=== PATIENT | male | born 2000 | race African-American/Black ===

== ENCOUNTER 2022-05-13 18:56 | Emergency (ER) | payer OTHER ==
[2022-05-13 19:35] VITALS: BP 126/88
[2022-05-13] MEDS ORDERED: methocarbamoL 500 MG TABLET PO STA (21:58)
[2022-05-13] MEDS ORDERED: KETOROLAC 30 MG/ML VIAL IM STA (21:59)
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
== END 2022-05-13 22:13 | disposition home or self-care (01) ==
LOC: ED 18:56
DX: S13.4XXA Sprain of ligaments of cervical spine, initial encounter (principal); V47.5XXA Car driver injured in collision with fixed or stationary object in traffic accident, initial encounter; Y93.89 Activity, other specified; F17.200 Nicotine dependence, unspecified, uncomplicated
CPT/HCPCS: 96372; 99282; 99283; A9270

== ENCOUNTER 2023-09-11 18:44 | Emergency (ER) | payer OTHER ==
--- NOTE | 2023-09-11 19:24 | ED Physician Documentation ---
PD HPI HEADACHE - Stated complaint Stated Complaint: DEMPSEY - Chief complaint Chief Complaint: Neuro - Additional information Additional information: 22-year-old male with no pertinent past medical history presents emergency department for 1 week of worsening headache. Patient says that he originally attributed this to working in a very loud environment he said pain to get worse at nighttime he is able to semicontrol the pain with Tylenol but nothing ever fully alleviated the headache. He has been noticing hot flashes at nighttime when he sleeping to the point where he is sweating through his sheets consistently for the last 4-5 nights. 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 a couple weeks ago he was in [facility], [facility], [place] and [facility] PD PAST MEDICAL HISTORY - Past Medical History Past Medical History: Yes Psych: Depression, Anxiety - Past Surgical History Past Surgical History: No - Present Medications Home Medications: Ambulatory Orders Medication Instructions Recorded Confirmed Fluoxetine HCl [Prozac] 40 mg PO QPM 09/11/23 09/11/23 - Allergies Allergies/Adverse Reactions: Allergies Allergy/AdvReac Type Severity Reaction Status Date / Time No Known Drug Allergies Allergy Verified 09/11/23 19:17 - Social History Does the pt smoke?: Yes Smoking Status: Current every day smoker Does the pt drink ETOH?: Yes Does the pt have substance abuse?: No - Immunizations Immunizations are current?: Yes - POLST Patient has POLST: No PD ED PE NORMAL - Vitals Vital signs reviewed: Yes - General General: Alert and oriented X 3, Well developed/nourished, Other (ill appearing) - HEENT HEENT: PERRL, Other (Subtle periorbital swelling) - Neck Neck: Other (Pain with palpation to the cervical region, positive for nuchal rigidity) - Cardiac Cardiac: RRR, No murmur, No gallop, Strong equal pulses - Respiratory Respiratory: No respiratory distress, Clear bilaterally - Back Back: Other (tenderness with flexion of neck and upper back) - Derm Derm: Normal color, No rash, Other (diaphoretic) - Neuro Neuro: Alert and oriented X 3, 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, No motor deficit, No sensory deficit, Normal speech Eye Opening: Spontaneous Motor: Obeys Commands Verbal: Oriented GCS Score: 15 Results - Vitals Vitals: Vital Signs - 24 hr 09/11/23 09/11/23 19:13 23:10 Temperature 37.8 C Heart Rate 86 80 Respiratory 16 18 Rate Blood Pressure 125/59 L 105/64 O2 Saturation 100 98 Oxygen O2 Source Room air - Labs Labs: Microbiology 09/11/23 21:35 CSF Culture - Preliminary Cerebral Spinal Fluid Laboratory Tests 09/11/23 09/11/23 09/11/23 20:10 20:10 20:10 WBC 8.1 RBC 4.60 L Hgb 13.5 L Hct 40.3 L MCV 87.6 MCH 29.3 MCHC 33.5 RDW 13.7 Plt Count 182 MPV 10.3 Neut # (Auto) Not Reportable Lymph # (Auto) Not Reportable Crawford # (Auto) Not Reportable Eos # (Auto) Not Reportable Baso # (Auto) Not Reportable Absolute Nucleated RBC Not Reportable Total Counted 100 Band Neuts % (Manual) 0 Reactive Lymphs % (Man) 16 Abnorm Lymph % (Manual) 0 Nucleated RBC % Not Reportable Neutrophils # (Manual) 3.0 Lymphocytes # (Manual) 3.6 H Monocytes # (Manual) 1.4 H Eosinophils # (Manual) 0.1 Basophils # (Manual) 0.0 Differential Comment MANUAL DIFFERENTIAL Manual Slide Review Indicated Platelet Estimate NORMAL (130-450,000) Platelet Morphology NORMAL APPEARANCE RBC Morph Micro Appear NORMAL APPEARANCE Sodium 137 Potassium 3.3 L Chloride 99 L Carbon Dioxide 31 Anion Gap 7.0 BUN 10 Creatinine 0.9 Estimated GFR (MDRD) 127 Glucose 92 Calcium 9.0 Magnesium 1.5 L Total Bilirubin 0.4 AST 21 ALT 21 Alkaline Phosphatase 47 Total Protein 6.5 Albumin 4.0 Globulin 2.5 Albumin/Globulin Ratio 1.6 CSF Color CSF Clarity Xanthrochromic CSF WBC CSF RBC CSF Cell Count Tube # CSF Neutrophils CSF Lymphocytes CSF Monocytes CSF Glucose CSF Total Protein Nasal Adenovirus (PCR) NOT DETECTED Nasal B. parapertussis DNA (PCR) NOT DETECTED Nasal Coronavir 229E PCR NOT DETECTED Nasal Coronavir HKU1 PCR NOT DETECTED Nasal Coronavir NL63 PCR NOT DETECTED Nasal Coronavir OC43 PCR NOT DETECTED Nasal Enterovir/Rhinovir PCR NOT DETECTED Nasal Influenza B PCR NOT DETECTED Nasal Influenza A PCR NOT DETECTED Nasal Parainfluen 1 PCR NOT DETECTED Nasal Parainfluen 2 PCR NOT DETECTED Nasal Parainfluen 3 PCR NOT DETECTED Nasal Parainfluen 4 PCR NOT DETECTED Nasal RSV (PCR) NOT DETECTED Nasal B.pertussis DNA PCR NOT DETECTED Nasal C.pneumoniae (PCR) NOT DETECTED Juan Manuel Human Metapneumo PCR NOT DETECTED Nasal M.pneumoniae (PCR) NOT DETECTED Nasal SARS-CoV-2 (PCR) NOT DETECTED 09/11/23 21:35 WBC RBC Hgb Hct MCV MCH MCHC RDW Plt Count MPV Neut # (Auto) Lymph # (Auto) Crawford # (Auto) Eos # (Auto) Baso # (Auto) Absolute Nucleated RBC Total Counted Band Neuts % (Manual) Reactive Lymphs % (Man) Abnorm Lymph % (Manual) Nucleated RBC % Neutrophils # (Manual) Lymphocytes # (Manual) Monocytes # (Manual) Eosinophils # (Manual) Basophils # (Manual) Differential Comment Manual Slide Review Platelet Estimate Platelet Morphology RBC Morph Micro Appear Sodium Potassium Chloride Carbon Dioxide Anion Gap BUN Creatinine Estimated GFR (MDRD) Glucose Calcium Magnesium Total Bilirubin AST ALT Alkaline Phosphatase Total Protein Albumin Globulin Albumin/Globulin Ratio CSF Color COLORLESS CSF Clarity CLEAR Xanthrochromic ABSENT CSF WBC 21 H* CSF RBC 0 CSF Cell Count Tube # CSF TUBE# 3 CSF Neutrophils 6 CSF Lymphocytes 78 CSF Monocytes 16 CSF Glucose 60 CSF Total Protein 48 H Nasal Adenovirus (PCR) Nasal B. parapertussis DNA (PCR) Nasal Coronavir 229E PCR Nasal Coronavir HKU1 PCR Nasal Coronavir NL63 PCR Nasal Coronavir OC43 PCR Nasal Enterovir/Rhinovir PCR Nasal Influenza B PCR Nasal Influenza A PCR Nasal Parainfluen 1 PCR Nasal Parainfluen 2 PCR Nasal Parainfluen 3 PCR Nasal Parainfluen 4 PCR Nasal RSV (PCR) Nasal B.pertussis DNA PCR Nasal C.pneumoniae (PCR) Juan Manuel Human Metapneumo PCR Nasal M.pneumoniae (PCR) Nasal SARS-CoV-2 (PCR) Procedures - Lumbar Puncture - Major Position: Sitting Location: L3-L4, Midline approach Anesthesia: Local lidocaine CSF: Clear Other: Sterile prep and drape, Patient tolerated well, No complications, Other (With assistance of Dr. Garcia) PD Medical Decision Making - ED course ED course: 22-year-old male presents emergency department for about 1 week of persistent headache that does not resolve with Tylenol ibuprofen patient also reports that he did have multiple hot flashes night sweats. In the ER he remains afebrile but he does stay in the 37.7 C range while here. Labs are collected he does not show any significant leukocytosis, mild anemia, hemoglobin 13.5, hematocrit 40.3 lymphocytes and monocytes very minimally elevated, potassium is slightly low 3.3 this was replaced in the ER as well as his low magnesium 1.5. Respiratory panel was negative. Given him IV fluids, dexamethasone, Tylenol, ketorolac which did help significantly alleviate his headache but I still could not completely eliminate the the possibility that this could be related to meningitis. Lumbar puncture was complete with the assistance of Dr. Garcia and he did have elevated CSF protein and an elevated CSF WBC, 21 because of this patient was conclusively diagnosed with viral meningitis. Additional cultures and viral CSF fluids were sent off for additional studies. Patient was told that he is safe for discharge she actually reports that he is feeling significantly better and he does have care established with a primary care provider [facility]. He was given very strict ER return precautions told to continue to manage his symptoms with Tylenol ibuprofen rest and plenty of fluids and given very strict ER return precautions. I have low suspicion of this being related to herpes meningitis patient has no confusion he is not altered in any way shape or form he is completely neurologically intact. Departure - Departure Disposition: 01 Home, Self Care Clinical Impression: Viral meningitis Instructions: ED Meningitis Viral Comments: Thank you for trusting us with your care.We have found that you have viral meningitis. At this point in time we will treat this. If you have a regular virus such as the flu or cold. Tylenol ibuprofen rest and plenty of fluids. We have sent your CSF fluid for further evaluation to the lab we will call you in 2 to 3 days IV need to come back into the hospital if there are to be any changes. Please Follow-up with your primary care provider and have a very low threshold to come back to the emergency department if you are feeling worse in any way shape or form. Forms: PCP List Discharge Date/Time: 09/11/23 23:10
[2023-09-11 20:21] LABS: BASOPHILS % (AUTO) 0.7 %; EOSINOPHILS % (AUTO) 0.2 %; HCT - HEMATOCRIT 40.3 % (42.0-52.0); HGB - HEMOGLOBIN 13.5 g/dL (14.0-18.0); LYMPHOCYTES % (AUTO) 58.1 %; MEAN CORPUSCULAR HEMOGLOBIN 29.3 pg (27.0-31.0); MEAN CORPUSCULAR HGB CONC 33.5 g/dL (32.0-36.0); MEAN CORPUSCULAR VOLUME 87.6 fL (80.0-94.0); MEAN PLATELET VOLUME 10.3 fL (7.4-11.4); MONOCYTES % (AUTO) 4.3 %; NEUTROPHILS % (AUTO) 36.5 %; PLT - PLATELET COUNT 182 10^3/uL (130-450); RED CELL DISTRIBUTION WIDTH 13.7 % (12.0-15.0); WHITE BLOOD COUNT 8.1 x10^3/uL (4.8-10.8)
[2023-09-11 20:23] LABS: MAGNESIUM 1.5 mg/dL (1.7-2.3)
[2023-09-11 20:29] LABS: ALBUMIN/GLOBULIN RATIO 1.6 (1.0-2.2); BILIRUBIN,TOTAL 0.4 mg/dL (0.2-1.0); CREATININE 0.9 mg/dL (0.6-1.3); POTASSIUM 3.3 mmol/L (3.5-4.5); TOTAL PROTEIN 6.5 g/dL (6.4-8.9)
[2023-09-11 20:43] LABS: SLIDE REVIEW? Indicated
[2023-09-11] MEDS: POTASSIUM CHLORIDE 20 MEQ TABLET PO STA (20:43)
[2023-09-11] MEDS: MAGNESIUM OXIDE 400 MG TABLET PO STA (20:43)
[2023-09-11 20:44] LABS: ABNORMAL LYMPHS % (MANUAL) 0 %; BAND NEUTROPHILS % (MANUAL) 0 %
[2023-09-11] MEDS: DEXAMETHASONE 10 MG/ML VIAL IVP STA (20:44)
[2023-09-11] MEDS: ACETAMINOPHEN 325 MG TABLET PO STA (20:44)
[2023-09-11] MEDS: KETOROLAC 30 MG/ML VIAL IVP STA (20:44)
[2023-09-11 21:09] LABS: EOSINOPHILS # (MANUAL) 0.1 10^3/uL (0-0.7); LYMPHOCYTES # (MANUAL) 3.6 10^3/uL (1.5-3.5); LYMPHOCYTES % (MANUAL) 29 %; MONOCYTES # (MANUAL) 1.4 10^3/uL (0.0-1.0); REACTIVE LYMPHS % (MANUAL) 16 %
[2023-09-11 21:10] LABS: PLATELET ESTIMATE, MANUAL NORMAL (130-450,000) (NORMAL); PLATELET MORPHOLOGY NORMAL APPEARANCE (NORMAL); RBC MORPHOLOGY (MULTIPLE) NORMAL APPEARANCE (NORMAL)
[2023-09-11 21:11] LABS: DIFFERENTIAL COMMENT MANUAL DIFFERENTIAL
[2023-09-11] MEDS: SODIUM CHLORIDE 0.9% 1,000 ML IV ONE (21:16)
[2023-09-11 21:19] LABS: CORONAVIRUS 229E-RESP PCR NOT DETECTED; CORONAVIRUS HKU1-RESP PCR NOT DETECTED; CORONAVIRUS NL63-RESP PCR NOT DETECTED
[2023-09-11 21:20] LABS: B. PARAPERTUSSIS- RESP PCR PAN NOT DETECTED; B. PERTUSSIS- RESP PCR PANEL NOT DETECTED; C. PNEUMONIAE- RESP PCR PANEL NOT DETECTED; CORONAVIRUS OC43-RESP PCR NOT DETECTED; HUMAN METAPNEUMOVIRUS NOT DETECTED; INFLUENZA A- RESP PCR PANEL NOT DETECTED; INFLUENZA B - RESP PCR PANEL NOT DETECTED; M. PNEUMONIAE- RESP PCR PANEL NOT DETECTED; PARAINFLUENZA VIRUS 1 NOT DETECTED; PARAINFLUENZA VIRUS 2 NOT DETECTED; PARAINFLUENZA VIRUS 3 NOT DETECTED; PARAINFLUENZA VIRUS 4 NOT DETECTED; RHINOVIRUS/ENTEROVIRUS NOT DETECTED; RSV- RESP PCR PANEL NOT DETECTED; SARS-CoV-2 -RESP PCR PANEL NOT DETECTED
[2023-09-11 22:17] LABS: CSF - GLUCOSE 60 mg/dL (45-70); TOTAL PROTEIN,CSF 48 mg/dL (15-45)
[2023-09-11 22:21] LABS: CLARITY,CSF CLEAR (CLEAR); COLOR,CSF COLORLESS (COLORLESS); CSF TUBE # CSF TUBE# 3; CSF XANTHOCHROMIA ABSENT (ABSENT)
[2023-09-11 22:25] LABS: RED BLOOD CELL,CSF 0 /mm^3 (0-1); WHITE BLOOD CELL,CSF 21 /mm^3 (0-5)
[2023-09-11 22:43] LABS: LYMPHOCYTES,CSF 78 % (40-80); MONOCYTES,CSF 16 % (15-45); NEUTROPHILS,CSF 6 % (0-6)
[2023-09-11 23:11] VITALS: BP 105/64; O2SAT 98
== END 2023-09-11 23:10 | disposition home or self-care (01) ==
LOC: ED 18:44
DX: A87.9 Viral meningitis, unspecified (principal); F17.200 Nicotine dependence, unspecified, uncomplicated; Z11.52 Encounter for screening for COVID-19
CPT/HCPCS: 36415; 62270; 80053; 81599; 82945; 83735; 84157; 85025; 87070; 87205; 87633; 89051; 96374; 99283; 99284; A9270; 87529